=== PATIENT | female | born 1985 | race Caucasian/White ===

== ENCOUNTER 2020-11-12 16:30 | Emergency (ER) | payer OTHER, SELFPAY | END 2020-11-12 17:42 | disposition home or self-care (01) | LOC: CSHERS 16:30 | DX: K11.20 Sialoadenitis, unspecified (principal) | CPT/HCPCS: 99283 ==

== ENCOUNTER 2021-08-02 12:34 | Emergency (ER) | payer BC | END 2021-08-02 13:05 | disposition home or self-care (01) | LOC: CSHERS 12:34 | DX: U07.1 COVID-19 (principal); F17.210 Nicotine dependence, cigarettes, uncomplicated | CPT/HCPCS: 99281 ==

== ENCOUNTER 2022-01-02 02:55 | Emergency (ER) | payer BC ==
[2022-01-02] MEDS ORDERED: Ketorolac Tromethamine 30 MG/ML VIAL ONE (03:15)
[2022-01-02] MEDS ORDERED: Acetaminophen 500 MG TAB ONE (03:16)
[2022-01-02 04:00] LABS: SARS-CoV-2 NAA Rapid Test Not Detected (NotDetected)
== END 2022-01-02 04:49 | disposition home or self-care (01) ==
LOC: CSHERS 02:55
DX: J06.9 Acute upper respiratory infection, unspecified (principal); F17.210 Nicotine dependence, cigarettes, uncomplicated; Z20.822 Contact with and (suspected) exposure to COVID-19
CPT/HCPCS: 96372; 99284; J1885; U0002

== ENCOUNTER 2022-02-26 06:08 | Emergency (ER) | payer BC | END 2022-02-26 06:15 | disposition home or self-care (01) | LOC: CSHERS 06:08 | DX: Z04.1 Encounter for examination and observation following transport accident (principal); F17.210 Nicotine dependence, cigarettes, uncomplicated | CPT/HCPCS: 99283 ==

== ENCOUNTER 2022-03-17 19:39 | Emergency (ER) | payer OTHER, BC ==
[2022-03-17] MEDS ORDERED: Ketorolac Tromethamine 30 MG/ML VIAL ONE (21:17)
== END 2022-03-17 21:46 | disposition home or self-care (01) ==
LOC: CSHERS 19:39
DX: M54.32 Sciatica, left side (principal); F17.210 Nicotine dependence, cigarettes, uncomplicated
CPT/HCPCS: 96372; 99283; J1885

== ENCOUNTER 2022-08-12 23:47 | Emergency (ER) | payer BC ==
[2022-08-13] MEDS ORDERED: predniSONE 20 MG TAB ONE (00:56)
[2022-08-13] MEDS ORDERED: Cyclobenzaprine 10 MG TAB ONE (00:57)
== END 2022-08-13 02:18 | disposition home or self-care (01) ==
LOC: CSHERS 23:47
DX: S66.811A Strain of other specified muscles, fascia and tendons at wrist and hand level, right hand, initial encounter (principal); M77.8 Other enthesopathies, not elsewhere classified; F17.210 Nicotine dependence, cigarettes, uncomplicated; W19.XXXA Unspecified fall, initial encounter
CPT/HCPCS: J7512

== ENCOUNTER 2023-02-24 04:03 | Emergency (ER) | payer BC ==
[2023-02-24] MEDS ORDERED: Ondansetron PF 4 MG/2 ML Vial ONE (04:42)
[2023-02-24 05:08] LABS: #Eosinphils 0.3 10x3/uL (0.0-0.5); #Neutrophils 5.9 10x3/uL (1.5-8.4); %Basophils 0.2 % (0.0-2.0); %Eosinophils 2.9 % (0.0-6.0); %Monocytes 8.7 % (0.0-10.0); %Neutrophils 53.8 % (40.0-75.0); Hematocrit 38.5 % (34.9-44.5); Hemoglobin 12.1 g/dL (12.0-15.5); Mean Corpuscular HGB CONC 31.4 g/dL (32.0-36.0); Mean Corpuscular Volume 73.1 fl (81.6-98.3); Platelet Count 365 10x3/uL (150-450); RBC Distribution Width 15.2 % (11.5-14.5); Red Blood Cell (RBC) Count 5.27 10x6/uL (3.90-5.03)
[2023-02-24 05:25] LABS: ALT (SGPT) 35 U/L (8-55); AST (SGOT) 19 U/L (5-34); Albumin 3.7 g/dL (3.5-5.0); Alkaline Phosphatase 50 U/L (40-110); Anion Gap 14 mmol/L (10-20); BUN (Urea Nitrogen) 14 mg/dL (7.0-18.7); Bilirubin, Total 0.2 mg/dL (0.2-1.2); Calc. Creatinine Clearance 0 mL/min (70-130); Calcium 8.8 mg/dL (7.8-10.44); Carbon Dioxide 20 mmol/L (22-29); Chloride 105 mmol/L (98-107); Estimated GFR 115; Globulin 3.2 g/dL (2.4-3.5); Glucose 124 mg/dL (70-105); Lipase 45 U/L (8-78); Potassium 3.8 mmol/L (3.5-5.1); Protein, Total 6.9 g/dL (6.0-8.3); Sodium 135 mmol/L (136-145)
[2023-02-24 06:40] LABS: Microcytosis SLIGHT = 6-15 cells (100X) (0-5/hpf)
== END 2023-02-24 06:24 | disposition home or self-care (01) ==
LOC: CSHERS 04:03
DX: R11.2 Nausea with vomiting, unspecified (principal); R19.7 Diarrhea, unspecified; Z87.891 Personal history of nicotine dependence
CPT/HCPCS: 80053; 83690; 85025; 96361; 96374; J2405

== ENCOUNTER 2023-08-02 22:44 | Emergency (ER) | payer BC ==
[2023-08-02] MEDS ORDERED: Ketorolac Tromethamine 30 MG (1 mL) VIAL ONE (23:37)
[2023-08-02] MEDS ORDERED: Ondansetron ODT 4 MG TAB ONE (23:38)
[2023-08-02 23:47] LABS: SARS-CoV-2 NAA Rapid Test Not Detected (NotDetected)
== END 2023-08-03 01:42 | disposition home or self-care (01) ==
LOC: CSHERS 22:44
DX: B34.9 Viral infection, unspecified (principal); Z87.891 Personal history of nicotine dependence
CPT/HCPCS: 96374; J1885; Q0162

== ENCOUNTER 2023-11-25 09:43 | Emergency (ER) | payer BC ==
[2023-11-25] MEDS ORDERED: Famotidine/PF 20 mg/2ml Vial ONE (10:15)
[2023-11-25] MEDS ORDERED: diphenhydrAMINE 50 MG/ML VIAL ONE (10:15)
[2023-11-25] MEDS ORDERED: Lidocaine 2% Viscous 10 mL, Alum & Magn 30 mL SSW SCH (10:30)
[2023-11-25 10:38] LABS: #Basophils 0.04 10x3/uL (0.0-0.2); #Eosinphils 0.16 10x3/uL (0.0-0.5); #Monocytes 0.59 10x3/uL (0.0-1.1); #Neutrophils 4.19 10x3/uL (1.5-8.4); %Basophils 0.5 % (0.0-2.0); %Lymphocytes 36.7 % (18.0-47.0); %Monocytes 7.5 % (0.0-10.0); Hematocrit 36.7 % (34.9-44.5); Mean Corpuscular HGB CONC 32.7 g/dL (32.0-36.0); Mean Corpuscular Hemoglobin 23.7 pg (27.0-33.0); Mean Corpuscular Volume 72.4 fl (81.6-98.3); Mean Platelet Volume 9.2 fl (7.4-10.4); Platelet Count 357 10x3/uL (150-450); RBC Distribution Width 14.6 % (11.5-14.5); Red Blood Cell (RBC) Count 5.07 10x6/uL (3.90-5.03); White Blood Cell (WBC) Count 7.9 10x3/uL (3.5-10.5)
[2023-11-25 10:56] LABS: ALT (SGPT) 61 U/L (8-55); AST (SGOT) 47 U/L (5-34); Albumin 3.5 g/dL (3.5-5.0); Alkaline Phosphatase 62 U/L (40-110); Anion Gap 12 mmol/L (10-20); BUN (Urea Nitrogen) 8 mg/dL (7.0-18.7); Bilirubin, Total 0.3 mg/dL (0.2-1.2); Calc. Creatinine Clearance 0 mL/min (70-130); Calcium 9.4 mg/dL (7.8-10.44); Carbon Dioxide 23 mmol/L (22-29); Chloride 106 mmol/L (98-107); Estimated GFR 112; Glucose 127 mg/dL (70-105); Lipase 27 U/L (8-78); Potassium 4.4 mmol/L (3.5-5.1); Protein, Total 7.5 g/dL (6.0-8.3); Sodium 137 mmol/L (136-145)
[2023-11-25 11:25] LABS: Microcytosis SLIGHT = 6-15 cells (100X) (0-5/hpf); Platelet Adequacy Comment Appears Adequate
== END 2023-11-25 11:28 | disposition home or self-care (01) ==
LOC: CSHERS 09:43
DX: T78.40XA Allergy, unspecified, initial encounter (principal); K29.00 Acute gastritis without bleeding; F41.9 Anxiety disorder, unspecified; Z87.891 Personal history of nicotine dependence; X58.XXXA Exposure to other specified factors, initial encounter
CPT/HCPCS: 36415; 80053; 83690; 85025; 96374; 96375; J1200; S0028

== ENCOUNTER 2024-05-06 01:36 | Emergency (ER) | payer BC ==
[2024-05-06] MEDS ORDERED: Dexamethasone 4 MG TAB ONE (02:03)
[2024-05-06] MEDS ORDERED: Ventolin HFA Inhaler 60 PUFF INHALER ONE (02:06)
== END 2024-05-06 02:32 | disposition home or self-care (01) ==
LOC: CSHERS 01:36
DX: J06.9 Acute upper respiratory infection, unspecified (principal)
CPT/HCPCS: 99283; J8540

== ENCOUNTER 2024-08-07 19:55 | Emergency (ER) | payer BC | END 2024-08-07 20:23 | disposition home or self-care (01) | LOC: CSHERS 19:55 | DX: J98.8 Other specified respiratory disorders (principal); B97.89 Other viral agents as the cause of diseases classified elsewhere | CPT/HCPCS: 87428; 99283 ==